=== PATIENT | male | born 1960 | race Caucasian/White ===

== ENCOUNTER 2020-03-01 12:50 | Outpatient (CLI) | payer OTHER ==
[2020-03-01 14:01] LABS: BASOPHILS # (AUTO) 0.06 x10^3/uL (0-0.1); BASOPHILS % (AUTO) 1 % (0-1); EOSINOPHILS # (AUTO) 0.44 x10^3/uL (0-0.4); EOSINOPHILS % (AUTO) 6 % (1-7); LYMPHOCYTES # (AUTO) 2.22 x10^3/uL (1-3.4); LYMPHOCYTES % (AUTO) 28 % (22-44); MD NO; MEAN CORPUSCULAR HEMOGLOBIN 29.9 pg (27.5-34.5); MEAN CORPUSCULAR HGB CONC 33.6 g/dL (33.2-36.2); MEAN CORPUSCULAR VOLUME 89.1 fL (81-97); MEAN PLATELET VOLUME 8.5 fL (7.4-10.4); MONOCYTES # (AUTO) 0.92 x10^3/uL (0.2-0.8); MONOCYTES % (AUTO) 12 % (2-9); NEUTROPHILS % (AUTO) 55 % (42-75); PLATELET COUNT 199 x10^3/uL (130-400); RED BLOOD COUNT 5.44 x10^6/uL (4.38-5.82); RED CELL DISTRIBUTION WIDTH 14.7 % (9.4-14.8)
[2020-03-01 14:13] LABS: INTERNATIONAL NORMALIZED RATIO 0.99 (0.93-1.1); PROTHROMBIN TIME 10.5 Seconds (9.6-11.5)
[2020-03-01 14:15] LABS: ALBUMIN 3.9 g/dL (3.4-5.0); ANION GAP 7 mmol/L (5-15); CALCIUM 8.8 mg/dL (8.5-10.1); CHLORIDE 107 mmol/L (98-107)
[2020-03-01] MEDS ORDERED: ATOR20TA37 PO (14:20)
[2020-03-01] MEDS ORDERED: METF10007 PO (14:20)
[2020-03-01 14:26] LABS: ALANINE AMINOTRANSFERASE 31 U/L (12-78)
[2020-03-01 14:29] LABS: ALKALINE PHOSPHATASE 76 U/L (45-117); BILIRUBIN,TOTAL 0.5 mg/dL (0.2-1.0); CREATININE 0.94 mg/dL (0.7-1.3); TOTAL PROTEIN 7.7 g/dL (6.4-8.2)
== END 2020-03-01 23:59 | disposition home or self-care (01) ==
LOC: STAR 12:50
PROVIDERS: ATTEND Orthopaedic Surgery
DX: Z01.818 Encounter for other preprocedural examination (principal); Z11.59 Encounter for screening for other viral diseases; M17.11 Unilateral primary osteoarthritis, right knee; M25.461 Effusion, right knee
CPT/HCPCS: 36415; 80053; 83036; 85025; 85610; 85730; 87081; 93005; U0001

== ENCOUNTER 2020-03-06 06:25 | Day surgery (SDC) | payer OTHER ==
[~2020-03-06] VITALS: Ht 182.9 cm; Wt 110.0 kg
[~2020-03-06 06:25] MED LIST: ATOR20TA37 PO; EPINEPHRINE 1 MG/ML, 1ML ONE; KETOROLAC 60 MG/2 ML ONE; METF10007 PO; ROPIvacaine/PF 0.5%, 30 ML ONE; SODIUM CHLORIDE 0.9% 50 ML ONE; TRANEXAMIC ACID 100 MG/ML, 10ML ONE; VANCOMYCIN 1,000 MG ONE
[2020-03-06] MEDS ORDERED: LACTATED RINGERS 1,000 ML IV SCH (06:34)
[2020-03-06] MEDS ORDERED: NS + 20MEQ KCL 1,000 ML IV SCH (06:58)
[2020-03-06] MEDS ORDERED: ONDANSETRON 4 MG TABLET PO PRN (07:00)
[2020-03-06] MEDS ORDERED: ACETAMINOPHEN 325 MG TABLET PO PRN ×2 (07:00→08:00)
[2020-03-06] MEDS ORDERED: ONDANSETRON 2MG/ML, 2ML IV PRN (07:00)
[2020-03-06] MEDS ORDERED: OXYcodone IR 5MG TABLET PO PRN (07:00)
[2020-03-06] MEDS ORDERED: CHLORHEXIDINE 15 ML UDC MM ONE (07:00)
[2020-03-06] MEDS ORDERED: ZOLPIDEM 5MG TABLET PO PRN (07:00)
[2020-03-06] MEDS ORDERED: HYDROcodone/APAP 5/325 TABLET PO PRN (07:00)
[2020-03-06] MEDS ORDERED: LIDOCAINE-MPF 1%, 2ML INFIL ONE (07:00)
[2020-03-06] MEDS ORDERED: SENNA/DOCUSATE TABLET PO PRN (07:00)
[2020-03-06] MEDS ORDERED: BISACODYL 10 MG SUPP PR PRN (07:00)
[2020-03-06] MEDS ORDERED: HYDROmorphone 1 MG/ML, 1ML INJ IV PRN (07:00)
[2020-03-06] MEDS ORDERED: MAGNESIUM HYDROXIDE 8%, 30ML UDC PO PRN (07:00)
[2020-03-06] MEDS ORDERED: DIPHENHYDRAMINE 50 MG CAPSULE PO PRN (07:00)
[2020-03-06] MEDS ORDERED: ACETAMINOPHEN 500 MG TABLET PO ONE (07:00)
[2020-03-06] MEDS: INSULIN LISPRO 100 UNITS/ML, PEN SQ-INSULIN SCH ×3 (07:00→15:52)
[2020-03-06] MEDS ORDERED: GABAPENTIN 300 MG CAPSULE PO ONE (07:00)
[2020-03-06] MEDS ORDERED: SUCCINYLCHOLINE 20 MG/ML, 10ML ONE (07:13)
[2020-03-06] MEDS ORDERED: ROCURONIUM 10 MG/ML,10ML ONE (07:13)
[2020-03-06] MEDS ORDERED: OXYcodone 5 MG/5 ML ORAL.SOL UDC PO PRN (08:00)
[2020-03-06] MEDS ORDERED: ALBUTEROL SULFATE 2.5 MG/3 ML NPPB PRN (08:00)
[2020-03-06] MEDS ORDERED: MIDAZOLAM 1 MG/ML, 2ML IV PRN (08:00)
[2020-03-06] MEDS ORDERED: LABETALOL 5MG/ML, 20ML IV PRN (08:00)
[2020-03-06] MEDS ORDERED: PROMETHAZINE 25 MG/ML, 1ML IVPush PRN (08:00)
[2020-03-06] MEDS ORDERED: HYDROmorphone 1 MG/ML, 1ML INJ IVPush PRN (08:00)
[2020-03-06] MEDS ORDERED: hydrALAzine 20 MG/ML, 1ML IV PRN (08:00)
[2020-03-06] MEDS ORDERED: MEPERIDINE/PF 25MG/0.5ML IVPush PRN (08:00)
[2020-03-06] MEDS ORDERED: FENTANYL PF 250 MCG/5ML ONE ×2 (08:05)
[2020-03-06] MEDS ORDERED: MIDAZOLAM 1 MG/ML, 2ML ONE (08:05)
[2020-03-06] MEDS ORDERED: ONDANSETRON 2MG/ML, 2ML ONE (08:06)
[2020-03-06] MEDS ORDERED: BUPIVACAINE/PF 0.25% ONE (08:06)
[2020-03-06] MEDS ORDERED: CEFAZOLIN 1,000 MG ONE (08:06)
[2020-03-06] MEDS ORDERED: DEXAMETHASONE 4 MG/ML, 1ML ONE (08:06)
[2020-03-06] MEDS ORDERED: PROPOFOL 10 MG/ML, 20ML ONE (08:06)
[2020-03-06] MEDS ORDERED: LIDOCAINE-MPF 2% ,5ML ONE ×2 (08:07)
[2020-03-06] MEDS ORDERED: DOCUSATE 100 MG CAPSULE PO SCH (09:00)
[2020-03-06] MEDS ORDERED: ACETAMINOPHEN 650 MG/20.3 ML UDC ONE (09:01)
[2020-03-06] MEDS ORDERED: OXYcodone 5 MG/5 ML ORAL.SOL UDC ONE (09:01)
[2020-03-06] MEDS ORDERED: FENTANYL PF 100 MCG/2ML ONE (09:07)
[2020-03-06] MEDS: FENTANYL PF 100 MCG/2ML IV PRN ×3 (09:09→09:35)
[2020-03-06] MEDS ORDERED: hydrALAzine 20 MG/ML, 1ML ONE (09:50)
[2020-03-06] MEDS ORDERED: DIPHENHYDRAMINE 25 MG CAPSULE PO PRN (10:36)
[2020-03-06] MEDS ORDERED: ASPI81TA45 PO (10:58)
[2020-03-06] MEDS ORDERED: OXYC5TAB3 PO (11:05)
[2020-03-06] MEDS ORDERED: TRAM50TA2 PO (11:06)
[2020-03-06] MEDS ORDERED: MELO7.5T31 PO (11:07)
[2020-03-06 13:30] VITALS: BP 117/70
[2020-03-06] MEDS ORDERED: CEFAZOLIN PMX 2GM/50ML 50 ML IVPB SCH (16:00)
[2020-03-06] MEDS ORDERED: ASPIRIN 81 MG TABLET EC PO SCH (18:00)
[2020-03-06] MEDS ORDERED: ATORVASTATIN 20 MG TABLET PO SCH (21:00)
[2020-03-06] MEDS ORDERED: metFORMIN 500 MG TABLET PO SCH (21:00)
[2020-03-07] MEDS ORDERED: DEXAMETHASONE 4 MG/ML, 1ML IVPush SCH (06:00)
== END 2020-03-06 16:55 | disposition home or self-care (01) ==
LOC: OUT 06:25 → 4NE 10:19 → DCLOUNGE 16:50 → OUT 16:55
PROVIDERS: ATTEND Orthopaedic Surgery
DX: M17.11 Unilateral primary osteoarthritis, right knee (principal); M25.761 Osteophyte, right knee; G47.33 Obstructive sleep apnea (adult) (pediatric); E78.5 Hyperlipidemia, unspecified; E11.9 Type 2 diabetes mellitus without complications; Z79.84 Long term (current) use of oral hypoglycemic drugs; Z79.899 Other long term (current) drug therapy; Z98.52 Vasectomy status; Z98.890 Other specified postprocedural states
CPT/HCPCS: 27447; 64447; 82962; 97110; 97161; C1713; C1776; J0171; J0330; J0360; J0690; J1100; J1885; J2250; J2405; J2704; J2795; J3010; J3370; J3490; J7120